=== PATIENT | female | born 1970 | race Caucasian/White ===

== ENCOUNTER 2018-07-14 07:29 | Day surgery (SDC) | payer BC ==
[2018-07-13 09:20] VITALS: BMI 28.0
--- NOTE | 2018-07-14 09:36 | HP ---
Satellite H - Chief Complaint Chief Complaint: right elbow pain - Past Medical History Allergies/Adverse Reactions: Allergies Allergy/AdvReac Type Severity Reaction Status Date / Time No Known Allergies Allergy Verified 07/13/18 09:20 ...LMP: 02/10/18 ...LMP Comment: PERIMEN - Current Medications Current Medications: Home Medications Medication Instructions Recorded Atorvastatin Ca [Lipitor] 10 mg PO HS 07/13/18 Multivitamin [One Daily] 1 each PO DAILY 07/13/18 Olmesartan Medoxomil [Benicar] 20 mg PO DAILY 07/13/18 Oxycodone HCl/Acetaminophen 1 - 2 tab PO Q6H #30 tab MDD 6 07/14/18 [Percocet 5-325 mg Tablet] Satellite Physical Exam - Physical Examination Vital Signs: Vital Signs Period Temp Pulse Resp BP Sys/Temple Pulse Ox Last 24 Hr 98.3 F 65 20 103/67 98 General Appearance: Well Nourished, Well Developed, Alert & Oriented x3 ENT: Clear Lung: Normal air movement Heart: Regular rate & rhythm Extremities: Other (right elbow- + ttp lateral epi, decr rom, nvi MRi + partial ecrb tear) Neurological: Intact, Alert, Oriented Satellite Impression/Plan - Impression/Plan Impression: right elbow lateral epicondylitis Operative Procedure: right elbow lateral epicondylectomy Date to be Performed: 07/14/18
[2018-07-14] MEDS ORDERED: SODIUM CHLORIDE 0.9% P/F 10 ML VIAL IJ ONE (09:37)
[2018-07-14] MEDS ORDERED: ceFAZolin SODIUM 1 GM VIAL ONE (09:37)
[2018-07-14] MEDS ORDERED: DEXAMETHASONE SOD PHOSPHATE 4 MG/1 ML VIAL ONE (09:37)
[2018-07-14] MEDS ORDERED: PROPOFOL 20 ML ONE ×3 (09:37→11:24)
[2018-07-14] MEDS ORDERED: MIDAZOLAM HCL 2 MG/2 ML SINGLE DOSE VIAL ONE (09:43)
[2018-07-14] MEDS ORDERED: DESFLURANE GAS 240 ML BOTTLE IH ONE (09:49)
[2018-07-14] MEDS ORDERED: DEXMEDETOMIDINE HCL 200 MCG/2 ML ML IVPB ONE (09:49)
[2018-07-14] MEDS ORDERED: BUPIVACAINE HCL/PF 0.5% (5MG/ML) 10 ML VIAL ONE (10:16)
[2018-07-14] MEDS ORDERED: LIDOCAINE HCL 1%, 10 MG/ML (20ML VIAL) ONE (10:16)
[2018-07-14] MEDS ORDERED: ceFAZolin SODIUM 1 GM VIAL IVPB ONE (10:20)
[2018-07-14] MEDS ORDERED: LIDOCAINE HCL 1%, 10 MG/ML (50 mL VIAL) IJ ONE ×2 (10:51)
[2018-07-14] MEDS ORDERED: BUPIVACAINE HCL/PF (5 MG/ML) 30 ML VIAL IJ ONE ×2 (10:51)
[2018-07-14] MEDS ORDERED: oxyCODONE HCL 5 MG TABLET PO PRN ×2 (11:04)
[2018-07-14] MEDS ORDERED: ONDANSETRON 4 MG/2 ML VIAL IVPUSH PRN (11:04)
[2018-07-14] MEDS ORDERED: LACTATED RINGERS SOLUTION 1,000 ML IV SCH (11:15)
[2018-07-14] MEDS ORDERED: ePHEDrine SULFATE 50 MG/1 ML AMPULE ONE (11:18)
--- NOTE | 2018-07-14 11:25 | OP ---
Operative Note - Note: Operative Date: 07/14/18 ([facility]) Pre-Operative Diagnosis: right elbow lateral epicondylitis Operation: right elbow lateral epicondylectomy with ECRB repair Post-Operative Diagnosis: Same as Pre-op Surgeon: Sj Carroll Anesthesiologist/PLANT PHYSIOLOGIST: Rene Pereyra Anesthesia: General, MAC Estimated Blood Loss (mls): 0 (tourniquet) Operative Report Dictated: Yes
--- NOTE | 2018-07-14 11:49 | OP ---
Operative Note - Note: Operative Date: 07/14/18 Pre-Operative Diagnosis: right elbow lateral epicondylitis, torn ECRB tendon Operation: right elbow lateral epicondylectomy, repair of ECRB tendon Post-Operative Diagnosis: Same as Pre-op Surgeon: Sj Carroll Anesthesiologist/FILLING TECHNICIAN: Rene Pereyra Anesthesia: General, Local Estimated Blood Loss (mls): 0 Drains, Volume Out (mls): 0 Blood Volume Replaced (mls): 0 Fluid Volume Replaced (mls): 700 Operative Report Dictated: Yes
[2018-07-14] MEDS ORDERED: oxyCODONE HCL 5 MG TABLET ONE (12:47)
--- NOTE | 2018-07-14 13:47 | OP ---
DATE OF OPERATION: 07/14/2018 PREOPERATIVE DIAGNOSIS: Right elbow lateral epicondylitis and torn extensor carpi radialis brevis tendon. POSTOPERATIVE DIAGNOSIS: Right elbow lateral epicondylitis and torn extensor carpi radialis brevis tendon. PROCEDURE: Right elbow lateral epicondylectomy and repair of extensor carpi radialis brevis tendon. DRAINS: None. COMPLICATIONS: None. FLUID REPLACEMENT: PlasmaLyte, 700 mL. SPECIMENS: None. BLOOD LOSS: None. BLOOD GIVEN: None. SURGEON: Chantel Desouza MD ASSISTANTS: None. HOME APPLIANCE TECHNICIAN: Rene Pereyra CRNA ANESTHESIA: LMA anesthesia with local injection 15 mL of 0.5% Marcaine and 1% lidocaine mixed. INDICATIONS: This patient is a 47-year-old female with a preoperative diagnosis of right elbow lateral epicondylitis and torn ECRB tendon. After understanding the potential risks, complications, alternatives, and benefits of surgery versus nonsurgical treatment, the patient elected to undergo this procedure. DESCRIPTION OF PROCEDURE: The patient was brought to the operating room, peripheral IV placed and intravenous sedation was given. LMA anesthesia was induced. One gram of IV Ancef was given. Tourniquet was applied to the right upper arm. The right upper extremity was prepped and draped in a sterile fashion, elevated and exsanguinated with an Esmarch bandage. Tourniquet inflated to 250 mmHg. The patient was in a sloppy lateral supine position. A curvilinear incision was marked out over the lateral epicondyle. Then, 15 mL of 0.5% Marcaine 1% lidocaine mix was injected in and around the surgical incision. The right upper extremity was elevated and exsanguinated with an Esmarch bandage. Tourniquet inflated to 250 mmHg. A No. 15 scalpel blade was utilized to cut through the skin. Subcutaneous hemostasis was achieved with the bipolar cautery. Dissection was done down through the adipose tissue to the superficial fascia. This was incised longitudinally for later repair. There was exposed lateral epicondyle. The origin of the ERCB, no obvious tear was present superficially. I made 3 longitudinal slits, on in the [id number] incision, one in the central portion of the lateral epicondyle, and one in the more inferior portion of the lateral epicondyle, and split the ERCB in line with its fibers. The sequential fascia from top to bottom. I then found chronic inflammatory tissue, removed it, scraped the tendon opening with a curette as well as mildly decorticated the lateral epicondyle in that area. I then used a 0.062 K-wire and drilled multiple drill holes sin the lateral epicondyle including the [id number] position for vascular inflow and stem cell migration. The area was irrigated and washed out. I did not see any other abnormal tissue. There were deep torn portions of the ECRB. These tears were repaired with 2-0 Vicryl sutures. I repaired the fascia over the repair with 2-0 Vicryl suture. I used 2-0 Vicryl also to close the deep dermal layer, and final skin reapproximation was done with a running subcuticular 4-0 Biosyn stitch. The area was then washed and dried, covered with Steri-Strips, 4x4s, Webril, and a posterior 5-inch Ortho-Glass splint was applied and wrapped with 2 [id number] bandages. The tourniquet was taken down after a total tourniquet time of about 42 minutes. There were no complications during the case. Patient tolerated the procedure quite well. CHANTEL DESOUZA M.D. [id number]
[2018-07-14 13:59] VITALS: PULSE 71; TEMP 97.9
[2018-07-14 14:51] VITALS: BP 110/61
== END 2018-07-14 14:45 | disposition home or self-care (01) ==
LOC: JASU-SURG 07:29
PROVIDERS: ATTEND Orthopaedic Surgery
PROC: 0PBF0ZZ Excision of Right Humeral Shaft, Open Approach (ICD-10-PCS; 2018-07-14)
PROC: 0PBF0ZZ Excision of Right Humeral Shaft, Open Approach (ICD-10-PCS; principal; 2018-07-14 09:00)
DX: M77.11 Lateral epicondylitis, right elbow (principal)
CPT/HCPCS: 84703; 94760